=== PATIENT | male | born 1995 | race Two or more races ===

== ENCOUNTER 2017-06-06 22:27 | Emergency (ER) | payer OTHER ==
[2017-06-06] MEDS ORDERED: Tetan/Diph/Pertus SYR(Tdap)* 0.5 ML SYR(BOOSTRIX) use SYR IM ONE (22:43)
[2017-06-06] MEDS ORDERED: Ibuprofen TAB* 600 MG PO ONE (23:26)
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
[2017-06-07 00:19] VITALS: BP 110/52
== END 2017-06-07 00:17 | disposition home or self-care (01) ==
LOC: ED 22:27
DX: S01.411A Laceration without foreign body of right cheek and temporomandibular area, initial encounter (principal); Y09 Assault by unspecified means; Y92.149 Unspecified place in prison as the place of occurrence of the external cause
CPT/HCPCS: 12014; 90471; 90715; 99282; A9270-GY